=== PATIENT | male | born 1960 | race Caucasian/White ===

== ENCOUNTER 2020-04-17 02:14 | Outpatient (CLI) | payer OTHER, SELFPAY ==
[2020-04-17 18:25] LABS: SARS-CoV-2 RNA PCR Negative
== END 2020-04-17 02:15 | disposition home or self-care (01) ==
LOC: ANHCOVIDDT 02:15
PROVIDERS: PCP Internal Medicine; Visit Provider Surgery
DX: Z01.812 Encounter for preprocedural laboratory examination (principal); Z20.828 Contact with and (suspected) exposure to other viral communicable diseases
CPT/HCPCS: 87635; C9803; U0003

== ENCOUNTER 2020-04-17 07:12 | Outpatient (CLI) | payer OTHER, SELFPAY | END 2020-04-17 07:13 | disposition home or self-care (01) | PROVIDERS: PCP Internal Medicine; Visit Provider Surgery | DX: K40.90 Unilateral inguinal hernia, without obstruction or gangrene, not specified as recurrent (principal); Z01.818 Encounter for other preprocedural examination | CPT/HCPCS: 36415; 86850; 86900; 86901 ==

== ENCOUNTER 2020-04-20 02:29 | Day surgery (SDC) | payer OTHER, SELFPAY ==
[2020-04-15 13:56] VITALS: BMI 35.4
--- NOTE | 2020-04-17 13:48 | WPDANESEPPF ---
Anes - Initial Pre Proc Eval Procedure: Operation Date: 04/20/20 07:30 Proposed Procedures p Robotic Assisted Laparoscopic Right Inguinal Hernia Repair With Mesh - Eunice Horne MD Date/Time: 04/17/20 13:48 Surgeon: Eunice Horne MD Pre Op Diagnosis: Right Inguinal Hernia Patient Data Age: 60 Gender: M Height: 5 ft 11 in Weight: 115.21 kg Allergies Allergy/AdvReac Type Severity Reaction Status Date / Time Sulfa (Sulfonamide Allergy Mild rash Verified 04/20/20 06:49 Antibiotics) Home Medications Medication Instructions Recorded Confirmed Type Vitamin D3 1 tablet PO DAILY 04/15/20 04/20/20 History multivitamin 1 tablet PO DAILY 04/15/20 04/20/20 History timolol maleate 1 drp OPHTHALMIC (EYE) DAILY 04/15/20 04/20/20 History Patient hx anesthesia problems: none Family hx anesthesia problems: none [facility] Past Medical History Medical History Glaucoma Surgical History Surgical History History of urethral stricture Family History Family History Father No problems noted. Mother No problems noted. 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 Questions were solicited and answers provided to the satisfaction of the patient/family/POA.
[2020-04-20] VITALS (12 sets, daily range): BP systolic 110–142; BP diastolic 65–88; PULSE 43–70; RESP 10–16; TEMP 36.1–36.4; O2SAT 95–100
[2020-04-20] MEDS: ACETAMINOPHEN 500 MG TABLET 1000 MG PO (06:51)
[2020-04-20] MEDS: LACTATED RINGERS 1,000 ML 30 ML IV CONT ×2 (07:04→09:07)
[2020-04-20] MEDS: KETOROLAC 15 MG/ML VIAL (*BKC) IV PUSH (07:05)
--- NOTE | 2020-04-20 07:18 | WPDHPUPDATE1 ---
History and Physical Update Update Date/Time: 04/20/20 07:18 History and Physical has been reviewed, including an updated exam of the patient. There are NO changes in the patient's condition. Risks, benefits, and alternatives have been discussed and questions answered. Patient agrees to proceed with procedure.
[2020-04-20] MEDS: ceFAZolin 2 GM/D5W 50 ML 2 GM/50 ML BAG IVPB (07:28)
[2020-04-20] MEDS: BUPIVACAINE/EPINEPHRINE 0.5% 10 ML VIAL 30 ML INFILTRATE (07:51)
--- NOTE | 2020-04-20 09:14 | P.OP_ITS ---
Procedure Note - Detailed Date of procedure: 04/20/20 Pre-op diagnosis: Right Inguinal Hernia Post-op diagnosis: same Procedure performed: robotic assisted incarcerated right inguinal hernia repair Description of procedure: Patient was brought into the operating room and placed in the supine position. After adequate induction of general anesthesia, the patient was prepped and draped in normal sterile fashion. A time-out was then done to verify the patient's identity, as well as the procedure being performed. Began by making a 8 mm incision in the supraumbilical region, a Veress needle was then placed into the peritoneal cavity. CO2 gas was then insufflated and after adequate pneumoperitoneum was achieved, the Veress needle was removed. I then placed an 8 mm trocar through this incision. I then placed the endoscope through this trocar site and under direct visualization placed 2 further 8 mm ports in the right and left mid abdomen. The [employer] robot was then docked to the 3 trocar sites. I then scrubbed out and went to the robotic console. Upon examining the pelvis, it was noted that the patient had a right inguinal hernia with a loop of small bowel. I was able to reduce the small bowel with gentle retraction out of the hernia. Once this was done, I began by making a preperitoneal flap approximately 6 cm superior to the defect. This flap was carried medially past the umbilical ligaments in laterally to the transversalis. It then began dissection of my medial compartment taking this down to the pubic tubercle. I then began the lateral dissection taking this down to the transversalis fascia. Once these compartments were achieved, I began dissection around the cord structures. It was noted at this point that the patient had a indirect hernia. Patient also had a large lipoma the cord. Using careful dissection, was able to reduce the lipoma cord as well separate the indirect hernia off the cord structures. Once this was adequately done, I went ahead and placed a 15 x 10 piece of Pro Mottle Lay Up Operator mesh into the abdominal cavity. The mesh was carefully positioned, centering the center of the mesh over the indirect defect. Once this was done, was very satisfied with our repair. I then closed the lesa toneal flap with a running 2.0 V Lock suture. The abdomen was then desufflated, and all ports were removed. All incisions were then closed with the 4.0 monocryl suture. Dermabond was placed on each wound. The patient tolerated the procedure well, was extubated in the operating room postoperatively, and will now be transferred to the recovery room in stable condition. Implants: 15 x 10 progrip mesh Anesthesia: GETA Surgeon: Eunice Horne MD Estimated blood loss (mL): 5 Drains: No Packing: No Pathology: none sent Complications: No immediate complications Condition: stable Disposition: PACU Findings: indirect RIH c incarcerated small bowel
== END 2020-04-20 11:40 | disposition home or self-care (01) ==
PROVIDERS: PCP Internal Medicine; Visit Provider Surgery
PROC: 8E0Y4CZ Robotic Assisted Procedure of Lower Extremity, Percutaneous Endoscopic Approach (ICD-10-PCS; CPT 49650; principal; 2020-04-20 07:30)
DX: K40.30 Unilateral inguinal hernia, with obstruction, without gangrene, not specified as recurrent (principal); H40.9 Unspecified glaucoma; E66.9 Obesity, unspecified; Z68.34 Body mass index [BMI] 34.0-34.9, adult
CPT/HCPCS: 49650; S2900; A9270; C1781; J0330; J0690; J1170; J1885; J2250; J2405; J2704; J2710; J3010; J7030; J7120

== ENCOUNTER 2022-09-15 09:49 | Day surgery (SDC) | payer OTHER, SELFPAY ==
[2022-08-08 07:11] VITALS: BMI 34.9
[2022-09-02 15:15] VITALS: BMI 33.7
[2022-09-15 11:05] VITALS: BP 131/83; PULSE 59; RESP 16; TEMP 36.8; O2SAT 100
--- NOTE | 2022-09-15 12:18 | WPDANESEPPF ---
Anes - Initial Pre Proc Eval Procedure: Operation Date: 09/15/22 12:30 Proposed Procedures p Screening Colonoscopy - Asif Rosario MD Date/Time: 09/15/22 12:18 Surgeon: Asif Rosario MD Pre Op Diagnosis: Neoplasm Screening Patient Data Age: 62 Gender: M Height: 1.83 m Weight: 114.6 kg Allergies Allergy/AdvReac Type Severity Reaction Status Date / Time Sulfa (Sulfonamide Allergy Mild rash Verified 09/15/22 11:06 Antibiotics) Home Medications Medication Instructions Recorded Confirmed Type Vitamin D3 1 tablet PO HS 04/15/20 09/15/22 History multivitamin 1 tablet PO HS 04/15/20 09/15/22 History timolol maleate 0.25 % eye drops 1 drp ophthalmic (eye) DAILY 04/15/20 09/15/22 History sodium,potassium,mag sulfates 17.5 See Rx Instructions PO .COMPLEX 08/05/22 09/15/22 Rx gram-3.13 gram-1.6 gram oral soln #354 mL (Suprep Bowel Prep Kit) aspirin 81 mg tablet,delayed 81 mg PO HS 09/02/22 09/15/22 History release rosuvastatin 10 mg tablet (Crestor) 10 mg PO HS 09/02/22 09/15/22 History Patient hx anesthesia problems: none Family hx anesthesia problems: none Results Review: All pre-operative results and documents have been reviewed as part of the pre-operative evaluation. [facility] Past Medical History Medical History Dyslipidemia Glaucoma Impaired fasting blood sugar Varicose veins of left lower extremity Surgical History Surgical History H/O inguinal hernia repair 04/20/20: robotic assisted lap right ing hernia repair. History of urethral stricture Family History Family History Father No problems noted. Mother No problems noted. Sibling Diabetes mellitus Social History Social History Smoking status: Never smoker Second hand tobacco smoke exposure: Yes Alcohol intake: current Drinks per week: 1 Alcohol use details: 1-2 DRINKS PER MONTH Substance use: never Substance use type: does not use Lack of Transportation: No Lack of Food: Never True Current Housing: I Have Housing Concerned About Future Housing: No Difficulty Paying Gas/Electric Bills: No Difficulty Paying for Meds: No Currently Unemployed: No Education: Bachelor's Degree Difficulty w/ Childcare or Family Care: No Living arrangements: with family Occupation/Education: occupation 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 Gender identity (if verbalized by the patient): Male Sexual Orientation (if Verbalized by the Patient): Straight or Heterosexual Spiritual care concerns: No Anes - Eval Final PreProcedure Day of Procedure 09/15/22 12:18 Patient weight: obese Heart: regular rate and rhythm Lungs: clear to auscultation Airway: Mallampati scale class II Neurological: alert and oriented Last oral intake: >/= 8 hours ASA classification: II Emergent: no Anesthetic plan: proceed Anesthesia type and monitoring: general GIVS and standard monitoring Results Review: All pre-operative results and documents have been reviewed as part of the pre-operative evaluation. Informed Consent: The patient's anesthetic plan and its attendant risks and benefits were discussed with the patient/family/POA. Questions were solicited and answers provided to the satisfaction of the patient/family/POA.
[2022-09-15] MEDS: LACTATED RINGERS 1,000 ML 150 ML IV CONT (12:26)
--- NOTE | 2022-09-15 12:55 | PM.HPGS ---
History of Present Illness History of Present Illness Consent: Risks, benefits, and alternatives have been discussed and questions answered. Patient agrees to proceed with procedure. Chief complaint: Neoplasm Screening Narrative: Alec Andersen Jr. is a 62 year old male Presents for screening colonoscopy. Patient's current weight appetite and bowel movements are normal. he denies abdominal pain. Patient has had no bleeding. Family history noncontributory. Review of Systems Review of Systems: Review of systems noncontributory. [facility] Past Medical History Medical History Dyslipidemia Glaucoma Impaired fasting blood sugar Varicose veins of left lower extremity Surgical History Surgical History H/O inguinal hernia repair 04/20/20: robotic assisted lap right ing hernia repair. History of urethral stricture Family History Family History Father No problems noted. Mother No problems noted. Sibling Diabetes mellitus Social History Social History Smoking status: Never smoker Second hand tobacco smoke exposure: Yes Alcohol intake: current Drinks per week: 1 Alcohol use details: 1-2 DRINKS PER MONTH Substance use: never Substance use type: does not use Lack of Transportation: No Lack of Food: Never True Current Housing: I Have Housing Concerned About Future Housing: No Difficulty Paying Gas/Electric Bills: No Difficulty Paying for Meds: No Currently Unemployed: No Education: Bachelor's Degree Difficulty w/ Childcare or Family Care: No Living arrangements: with family Occupation/Education: occupation 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 Gender identity (if verbalized by the patient): Male Sexual Orientation (if Verbalized by the Patient): Straight or Heterosexual Spiritual care concerns: No Meds Home Medications and Allergies Home Medications Medication Instructions Recorded Confirmed Type Vitamin D3 1 tablet PO HS 04/15/20 09/15/22 History multivitamin 1 tablet PO HS 04/15/20 09/15/22 History timolol maleate 0.25 % eye drops 1 drp ophthalmic (eye) DAILY 04/15/20 09/15/22 History sodium,potassium,mag sulfates 17.5 See Rx Instructions PO .COMPLEX 08/05/22 09/15/22 Rx gram-3.13 gram-1.6 gram oral soln #354 mL (Suprep Bowel Prep Kit) aspirin 81 mg tablet,delayed 81 mg PO HS 09/02/22 09/15/22 History release rosuvastatin 10 mg tablet (Crestor) 10 mg PO HS 09/02/22 09/15/22 History Allergies Allergy/AdvReac Type Severity Reaction Status Date / Time Sulfa (Sulfonamide Allergy Mild rash Verified 09/15/22 11:06 Antibiotics) Vital Signs Vital Signs - 24 hr 09/15/22 11:05 Temperature 98.3 F Pulse Rate 59 L Respiratory Rate 16 Blood Pressure 131/83 Pulse Oximetry 100 Oxygen Delivery Room Air Exam Narrative: Physical exam reveals patient to be alert. Vital signs stable. HEENT exam is unremarkable. Patient is anicteric. Lungs are clear to auscultation and percussion. Heart is without murmur or extra sounds. Abdomen bowel sounds are present soft nontender with no organomegaly. Digital external rectal exam is normal. Assessment and Plan Assessment and plan (1) Encounter for screening colonoscopy: Code(s): Z12.11 - Encounter for screening for malignant neoplasm of colon Status: Acute Assessment and Plan: Patient presents for screening colonoscopy. He appears to be at normal risk for colon polyps.
[2022-09-15 13:17] VITALS: BP 116/67; PULSE 66; RESP 16; O2SAT 99
--- NOTE | 2022-09-15 13:24 | WPDANESPN ---
Anes - Prog Note Post-Op Date/Time: 09/15/22 13:24 Cardiovascular status: normal Respiratory status: normal Airway patency: baseline Mental status: baseline Post-Op hydration status: normal Vital Signs: Last Vital Signs Temp 36.8 C 09/15/22 11:05 Pulse 59 L 09/15/22 11:05 Resp 16 09/15/22 11:05 BP 131/83 09/15/22 11:05 Pulse Ox 100 09/15/22 11:05 O2 Del Method Room Air 09/15/22 11:05 Pain Score (VAS): 0/10 Patient Feedback: Patient satisfied with anesthetic care.
[2022-09-15 13:27] VITALS: BP 116/84; PULSE 61; RESP 16; O2SAT 100
--- NOTE | 2022-09-15 13:29 | SUR.PHASEII ---
PT AWAKE AND ALERT. EATING AND DRINKING. TALKATIVE WITH SPOUSE. DENIES PAIN.
[2022-09-15 13:37] VITALS: BP 127/79; PULSE 59; RESP 16; O2SAT 100
== END 2022-09-15 13:42 | disposition home or self-care (01) ==
PROVIDERS: PCP Physician Assistant Medical; Visit Provider Internal Medicine Gastroenterology
PROC: 0DJD8ZZ Inspection of Lower Intestinal Tract, Via Natural or Artificial Opening Endoscopic (ICD-10-PCS; CPT 45378; principal; 2022-09-15 12:30)
DX: Z12.11 Encounter for screening for malignant neoplasm of colon (principal)
CPT/HCPCS: 45378